=== PATIENT | female | born 1990 | race African-American/Black ===

== ENCOUNTER 2022-04-28 17:21 | Emergency (ER) | payer MEDICAID ==
[~2022-04-28] VITALS: Ht 162.6 cm; Wt 52.7 kg
[~2022-04-28 17:21] MED LIST: ABILIFY; DILANTIN; DIVA500T3; FOLIC ACID
[2022-04-28 18:31] LABS: CLARITY URINE CLEAR (CLEAR); COLOR URINE YELLOW (YELLOW); KETONES URINE NEGATIVE (NEGATIVE); LEUKOCYTE ESTERASE URINE 1+ (NEGATIVE); NITRITE URINE NEGATIVE (NEGATIVE); OCCULT BLOOD URINE NEGATIVE (NEGATIVE); PROTEIN URINE NEGATIVE (NEGATIVE); SPECIFIC GRAVITY URINE 1.009 (1.005-1.030); UROBILINOGEN URINE 0.2 E.U./dL (0.2-1.0)
[2022-04-28] MEDS ORDERED: MAGNESIUM/ALUMINUM HYDROXIDE/SIMETHICONE 30ML UDC PO ONE (18:45)
[2022-04-28] MEDS ORDERED: ONDANSETRON 4MG ODT PO ONE (18:45)
[2022-04-28 19:36] LABS: MEAN CORPUSCULAR HEMOGLOBIN 25.6 pg (28.0-32.0); MEAN CORPUSCULAR VOLUME 79.5 fL (81.0-99.0); MEAN PLATELET VOLUME 8.4 fl (7.4-10.4); PLATELET 310 x1000/uL (130-400); RED BLOOD CELL COUNT 3.91 mill/uL (4.2-5.4); RED CELL DISTRIBUTION WIDTH 23.5 % (11.6-14.6)
[2022-04-28 19:43] LABS: CHLORIDE 108 mEq/L (98-107)
[2022-04-28 20:48] LABS: HCG SCREEN NEGATIVE
[2022-04-28] MEDS ORDERED: NITR-87 MT (21:13)
[2022-04-28 21:15] VITALS: BP 131/52
[2022-04-28] MEDS ORDERED: KETOROLAC 30MG/ML VIAL IM NR (21:15)
[2022-04-28] MEDS ORDERED: NITROFURANTOIN 100MG M/M CAPSULE PO NR (21:15)
[2022-04-28] MEDS ORDERED: ONDA4TAB11 PO (21:19)
[2022-04-29 00:32] LABS: NUCLEATED RED BLOOD CELLS 9 /100 WBC; PLATELET ESTIMATE NORMAL
== END 2022-04-28 21:28 | disposition home or self-care (01) ==
LOC: ER 17:21
DX: N39.0 Urinary tract infection, site not specified (principal); G40.909 Epilepsy, unspecified, not intractable, without status epilepticus; D57.1 Sickle-cell disease without crisis; F20.9 Schizophrenia, unspecified; F12.10 Cannabis abuse, uncomplicated; Z90.81 Acquired absence of spleen; Z88.0 Allergy status to penicillin
CPT/HCPCS: 36415; 76705; 80053; 81003; 81025; 83690; 84703; 85025; 96372; 99284; J1885; Q0162